=== PATIENT | male | born 1995 | race Caucasian/White ===

== ENCOUNTER 2022-09-05 19:04 | Emergency (ER) | payer MEDICAID ==
[~2022-09-05] VITALS: Ht 175.3 cm; Wt 72.7 kg
[2022-09-05 19:09] VITALS: BP 162/87
== END 2022-09-05 21:05 | disposition left against medical advice (07) ==
LOC: EMS 19:07
DX: T15.91XA Foreign body on external eye, part unspecified, right eye, initial encounter (principal); Z53.21 Procedure and treatment not carried out due to patient leaving prior to being seen by health care provider

== ENCOUNTER 2022-12-19 21:16 | Emergency (ER) | payer MEDICAID ==
[~2022-12-19] VITALS: Ht 175.3 cm; Wt 79.5 kg
[2022-12-20 02:28] VITALS: BP 145/77
== END 2022-12-20 02:30 | disposition home or self-care (01) ==
LOC: EMS 21:17
DX: R68.84 Jaw pain (principal); F17.210 Nicotine dependence, cigarettes, uncomplicated; F15.90 Other stimulant use, unspecified, uncomplicated; V98.8XXA Other specified transport accidents, initial encounter; Y93.89 Activity, other specified; Y92.89 Other specified places as the place of occurrence of the external cause; Y99.8 Other external cause status
CPT/HCPCS: 99284; 70450; 36415; 70486; 72125; G0480

== ENCOUNTER 2024-05-15 19:26 | Emergency (ER) | payer MEDICAID ==
[~2024-05-15] VITALS: Ht 175.3 cm; Wt 75.9 kg
[2024-05-15 19:31] VITALS: TEMP 98.2
[2024-05-15 22:02] VITALS: BP 125/84; PULSE 105; RESP 16; O2SAT 98
[2024-05-15] MEDS: TraMADol HCL 50 MG TABLET PO ONE (23:30)
== END 2024-05-16 02:47 | disposition home or self-care (01) ==
LOC: EMS 19:26
DX: S06.0X0A Concussion without loss of consciousness, initial encounter (principal); F17.210 Nicotine dependence, cigarettes, uncomplicated; F15.90 Other stimulant use, unspecified, uncomplicated; Y08.89XA Assault by other specified means, initial encounter; Y93.89 Activity, other specified; Y92.89 Other specified places as the place of occurrence of the external cause; Y99.8 Other external cause status
CPT/HCPCS: 70450; 70486; 70551; 99284

== ENCOUNTER 2025-05-24 13:07 | Emergency (ER) | payer MEDICAID, OTHER ==
[~2025-05-24] VITALS: Ht 177.8 cm; Wt 84.1 kg
[2025-05-24 13:25] VITALS: BP 128/80; PULSE 96; RESP 18; TEMP 97.9; O2SAT 97
[2025-05-24 15:42] LABS: COVID AG,FIA SOURCE NASAL SWAB
[2025-05-24 15:43] LABS: PLATELET COUNT (AUTO) 266 K/uL (150-450); RED BLOOD CELL COUNT(AUTO) 4.62 MIL/uL (4.50-5.90); RED CELL DISTRIBUTION WIDTH 13.4 % (11.5-14.5); WHITE BLOOD COUNT (AUTO) 6.1 K/uL (4.5-11.0)
[2025-05-24 15:50] LABS: CALCIUM, TOTAL 8.6 mg/dL (8.8-10.5); CREATININE 0.95 mg/dL (0.60-1.30); GLOMERULAR FILTR. RATE CALC > 60 mL/min (>60); GLUCOSE,RANDOM 94 mg/dL (70-110); SODIUM SERUM 138 mmol/L (136-145); UREA NITROGEN, BLOOD 22 mg/dL (7-18)
[2025-05-24 15:54] LABS: ASPARTATE AMINOTRANSFERASE 22 U/L (15-37); TOTAL PROTEIN, SERUM 7.4 g/dL (6.4-8.2)
[2025-05-24 15:58] LABS: SARS-COV2 (COVID) ANTIGEN,FIA Negative (Negative)
[2025-05-24 16:00] LABS: TROPONIN I-HIGH SENSITIVITY 8 ng/L (<76)
[2025-05-24 16:13] LABS: ALCOHOL, BLOOD (SERUM) < 3 mg/dL (0-10)
[2025-05-24 16:13] LABS: PH,URINE DRUG SCREEN 6.0 (5.0-8.0)
[2025-05-24 16:21] LABS: ALCOHOL, URINE DRUG SCREEN NEGATIVE (NEGATIVE); AMPHET/METH SCREEN,URINE POSITIVE (NEGATIVE); BARBITURATE SCREEN, URINE NEGATIVE (NEGATIVE); CANNABINOID SCREEN,URINE NEGATIVE (NEGATIVE); COCAINE SCREEN,URINE NEGATIVE (NEGATIVE); METHADONE SCREEN, URINE NEGATIVE (NEGATIVE)
== END 2025-05-24 16:53 | disposition home or self-care (01) ==
LOC: EMS 13:10
DX: F15.90 Other stimulant use, unspecified, uncomplicated (principal); F32.A Depression, unspecified; R53.1 Weakness; F17.210 Nicotine dependence, cigarettes, uncomplicated; Z20.822 Contact with and (suspected) exposure to COVID-19
CPT/HCPCS: 99285; 87426; 80048; 80076; 84484; 85025; 36415; 93005; 80307; G0480